=== PATIENT | male | born 1990 | race African-American/Black ===

== ENCOUNTER 2016-08-19 11:09 | Emergency (ER) | payer BC, OTHER ==
[~2016-08-19] VITALS: Ht 167.6 cm; Wt 102.6 kg
[~2016-08-19 11:09] MED LIST: MULT-506 PO; PRED20TA2 PO; TRAM-10 PO
[2016-08-19 11:23] VITALS: TEMP 37.1; Ht 167.6 cm; Wt 102.6 kg
[2016-08-19 12:07] LABS: COMPLETE YES; EOS % 1.1 %; HEMATOCRIT 40.6 % (42-52); IG% 0.3 %; LYMPH % 11.8 %; LYMPH ABS # 0.93 K/uL (1.2-3.4); MEAN CELL VOLUME 81.2 fL (80-100); MEAN CORPUSCULAR HEMOGLOBIN 28.6 pg (25-34); MEAN CORPUSCULAR HGB CONC 35.2 g/dl (32-36); MEAN PLATELET VOLUME 10.4 fL (7.4-10.4); MONO % 3.5 %; NEUT % 83.3 %; PLATELET COUNT 248 K/uL (130-400)
[2016-08-19 12:14] LABS: BUN/CREATININE RATIO 18.6 (10-20); CALCIUM 9.4 mg/dl (8.5-10.1); CREATININE 1.3 mg/dl (0.60-1.40)
[2016-08-19] MEDS ORDERED: ONDANSETRON 8 MG/54 ML D5W IV STA (13:23)
[2016-08-19] MEDS ORDERED: SODIUM CHLORIDE 0.9% 1000ML 2,000 ML IV STA (13:23)
--- NOTE | 2016-08-19 14:03 | DIAGNOSTIC IMAGING REPORT ---
CT SCAN OF THE ABDOMEN AND PELVIS WITHOUT CONTRAST CLINICAL HISTORY: Left-sided abdominal pain and vomiting COMPARISON STUDY: January 2009 TECHNIQUE: CT scan of the abdomen and pelvis was performed from the lung bases to the proximal femurs. Images are reviewed in the axial, sagittal, and coronal planes. IV contrast was not administered for this examination. CT DOSE: 1174.99 mGycm FINDINGS: Lower chest: The heart is normal in size and configuration, without pericardial effusion. The lung bases and pleural spaces are clear. Liver: There is hepatic steatosis. No focal masses are visualized. Gallbladder: Unremarkable. Spleen: Normal in size and attenuation. Pancreas: Unremarkable. Adrenal glands: Unremarkable. Kidneys: No renal, ureteral, or bladder calculi are visualized. Bowel: There are no transition zones indicate bowel obstruction. The appendix appears normal. There is no acute diverticulitis. Peritoneum: There is no intraperitoneal free air or abdominal ascites. Vasculature: The abdominal aorta is normal in course and caliber. Adenopathy: None. Pelvic viscera: The bladder, and pelvic viscera are unremarkable. Skeletal structures: No destructive osseous lesions are seen. IMPRESSION: 1. Hepatic steatosis 2. No renal, ureteral, or bladder calculi identified 3. No evidence of bowel obstruction. No evidence of free air 4. Normal appendix 5. No evidence of acute diverticulitis. Electronically signed by: Jose Gabriel M.D. 08/19/2016 2:02 PM Dictated Date/Time: 08/19/2016 1:59 PM
[2016-08-19 15:09] LABS: URINE APPEARANCE CLEAR (CLEAR); URINE BILIRUBIN NEG (NEG); URINE COLOR YELLOW; URINE NITRITE NEG (NEG); URINE PH 6.5 (4.5-7.5); UROBILINOGEN NEG (NEG); ZZUR CULT IF INDIC CLEAN CATCH NO
[2016-08-19 15:12] LABS: MANUAL MICROSCOPIC REQUIRED? NO; REVIEW REQ? NO
[2016-08-19 16:09] VITALS: BP 132/68; PULSE 88; O2SAT 97
[2016-08-19] MEDS ORDERED: PHENERGAN 25MG HOMEPACK PO ONE (16:15)
--- NOTE | 2016-08-19 21:16 | EMERGENCY ROOM VISIT NOTE ---
History Report prepared by Michael: Tesha Johnson Under the Supervision of: Dr. Raul Proctor M.D. First contact with patient: 13:07 Chief Complaint: ABDOMINAL PAIN Stated Complaint: SEVERE LT ABD. PAIN, VOMITING X 12 HRS, DIZZY History of Present Illness The patient is a 26 year old male who presents to the Emergency Room with complaints of intermittent left lower quadrant abdominal pain that started about 12 hours ago, around 0130 this morning. He rates his discomfort as a 1/10 in severity currently, but when the pain was at its worst he would rate his discomfort as an 8/10 in severity. The patient states that he woke up early this morning and vomited. The abdominal pain started after the vomiting. However , when he vomits it seems like the pain starts then he gets nauseous and then he experiences vomiting. He states that the vomiting was constant up until around 0730 this morning and he has been experiencing dry heaving ever since. The abdominal pain started out intermittent then became constant this morning and now it is intermittent again. He adds that the pain does feel like it is improving. The patient states that he experienced chills last night and this morning. He also states that he had a normal bowel movement last night before bed. Pt denies LOC, headache, fevers, diaphoresis, visual changes, neck pain, chest pain, breathing difficulties, back pain, melena, hematochezia, urinary symptoms, numbness, weakness, lymphadenopathy, rash, or other complaints. The patient also denies any history of kidney stones, problems urinating, or bladder issues. Source of History: patient Onset: 12 hours ago, around 0130 this morning Position: abdomen (LLQ) Symptom Intensity: 1/10 currently, 8/10 at its worst Timing: intermittent Associated Symptoms: + chills, + nausea, + vomiting Review of Systems See HPI for pertinent positives and negatives. A total of ten systems were reviewed and were otherwise negative. Past Medical & Surgical Medical Problems: (1) Alcohol Abuse-Unspec (2) Disloc Shoulder Nos-Clos (3) Dislocation of right shoulder joint (4) Lumbar herniated disc Family History Patient reports no known family medical history. Social History Smoking Status: Never Smoker Alcohol Use: occasionally Marital Status: in relationship Occupation Status: employed Allergies Coded Allergies: Penicillins (Verified Allergy, Unknown, ., 08/19/16) Physical Exam Vital Signs Date Time Temp Pulse Resp B/P Pulse Ox O2 Delivery O2 Flow Rate FiO2 08/19/16 16:09 88 20 132/68 97 Room Air 08/19/16 13:11 99 20 149/78 97 Room Air 08/19/16 11:23 37.1 108 18 135/86 96 Room Air Physical Exam GENERAL: Awake, alert, well-appearing, in no distress HENT: Normocephalic, atraumatic. Oropharynx unremarkable. EYES: Normal conjunctiva. Sclera non-icteric. NECK: Supple. No nuchal rigidity. FROM. No JVD. RESPIRATORY: Clear to auscultation. CARDIAC: Regular rate, normal rhythm. Extremities warm and well perfused. Pulses equal. ABDOMEN: Soft, non-distended. Left lower quadrant tenderness to palpation. No rebound or guarding. No masses. RECTAL: Deferred. MUSCULOSKELETAL: Chest examination reveals no tenderness. The back is symmetrical on inspection without obvious abnormality. There is no CVA tenderness to palpation. No joint edema. LOWER EXTREMITIES: Calves are equal size bilaterally and non-tender. No edema. No discoloration. NEURO: Normal sensorium. No sensory or motor deficits noted. SKIN: No rash or jaundice noted. Medical Decision & Procedures ER Provider Diagnostic Interpretation: CT results as stated below per my review and radiologist interpretation CT SCAN OF THE ABDOMEN AND PELVIS WITHOUT CONTRAST IMPRESSION: 1. Hepatic steatosis 2. No renal, ureteral, or bladder calculi identified 3. No evidence of bowel obstruction. No evidence of free air 4. Normal appendix 5. No evidence of acute diverticulitis. Electronically signed by: Jose Gabriel M.D. 08/19/2016 2:02 PM Dictated Date/Time: 08/19/2016 1:59 PM Laboratory Results 08/19/16 11:40 Red Blood Count 5.00, Mean Corpuscular Volume 81.2, Mean Corpuscular Hemoglobin 28.6, Mean Corpuscular Hemoglobin Concent 35.2, Mean Platelet Volume 10.4, Neutrophils (%) (Auto) 83.3, Lymphocytes (%) (Auto) 11.8, Monocytes (%) (Auto) 3.5, Eosinophils (%) (Auto) 1.1, Basophils (%) (Auto) 0.0, Neutrophils # (Auto) 6.58, Lymphocytes # (Auto) 0.93, Monocytes # (Auto) 0.28, Eosinophils # (Auto) 0.09, Basophils # (Auto) 0.00 08/19/16 11:40 Test 08/19/16 11:40 08/19/16 14:25 White Blood Count 7.90 K/uL (4.8-10.8) Red Blood Count 5.00 M/uL (4.7-6.1) Hemoglobin 14.3 g/dL (14.0-18.0) Hematocrit 40.6 % (42-52) Mean Corpuscular Volume 81.2 fL (80-100) Mean Corpuscular Hemoglobin 28.6 pg (25-34) Mean Corpuscular Hemoglobin Concent 35.2 g/dl (32-36) Platelet Count 248 K/uL (130-400) Mean Platelet Volume 10.4 fL (7.4-10.4) Neutrophils (%) (Auto) 83.3 % Lymphocytes (%) (Auto) 11.8 % Monocytes (%) (Auto) 3.5 % Eosinophils (%) (Auto) 1.1 % Basophils (%) (Auto) 0.0 % Neutrophils # (Auto) 6.58 K/uL (1.4-6.5) Lymphocytes # (Auto) 0.93 K/uL (1.2-3.4) Monocytes # (Auto) 0.28 K/uL (0.11-0.59) Eosinophils # (Auto) 0.09 K/uL (0-0.5) Basophils # (Auto) 0.00 K/uL (0-0.2) RDW Standard Deviation 40.9 fL (36.4-46.3) RDW Coefficient of Variation 13.7 % (11.5-14.5) Immature Granulocyte % (Auto) 0.3 % Immature Granulocyte # (Auto) 0.02 K/uL (0.00-0.02) Anion Gap 11.0 mmol/L (3-11) Est Creatinine Clear Calc Drug Dose 94.9 ml/min Estimated GFR () 86.1 Estimated GFR (Non- 74.3 BUN/Creatinine Ratio 18.6 (10-20) Calcium Level 9.4 mg/dl (8.5-10.1) Total Bilirubin 0.7 mg/dl (0.2-1) Aspartate Amino Transf (AST/SGOT) 31 U/L (15-37) Alanine Aminotransferase (ALT/SGPT) 52 U/L (12-78) Alkaline Phosphatase 72 U/L (45-117) Total Protein 8.7 gm/dl (6.4-8.2) Albumin 4.4 gm/dl (3.4-5.0) Globulin 4.3 gm/dl (2.5-4.0) Albumin/Globulin Ratio 1.0 (0.9-2) Lipase 93 U/L (73-393) Urine Color YELLOW Urine Appearance CLEAR (CLEAR) Urine pH 6.5 (4.5-7.5) Urine Specific [place] 1.030 (1.000-1.030) Urine Protein TRACE (NEG) Urine Glucose (UA) NEG (NEG) Urine Ketones NEG (NEG) Urine Occult Blood NEG (NEG) Urine Nitrite NEG (NEG) Urine Bilirubin NEG (NEG) Urine Urobilinogen NEG (NEG) Urine Leukocyte Esterase NEG (NEG) Urine WBC (Auto) 0 /hpf (0-5) Urine RBC (Auto) 0-4 /hpf (0-4) Urine Hyaline Casts (Auto) 0 /lpf (0-5) Urine Epithelial Cells (Auto) 5-10 /lpf (0-5) Urine Bacteria (Auto) NEG (NEG) Laboratory results reviewed by me Medications Administered Medications (Trade) Dose Ordered Sig/Alondra Route Start Time Stop Time Status Last Admin Dose Admin Sodium Chloride (Nss 1000ml) 2,000 ml @ 999 mls/hr Q2H1M STAT IV 08/19/16 13:23 08/19/16 15:23 DC 08/19/16 13:30 999 MLS/HR Ondansetron HCl (Zofran 8mg Iv) 8 mg NOW STAT IV 08/19/16 13:23 08/19/16 13:25 DC 08/19/16 13:30 8 MG Promethazine HCl (Phenergan 25MG Home Pack) 1 homepack UD ONCE PO 08/19/16 16:15 08/19/16 16:16 DC 08/19/16 16:27 1 HOMEPACK ED Course 1322: The patient was evaluated in room B3. A complete history and physical exam was performed. 1323: Ordered Ondansetron HCl 8 mg IV, Sodium Chloride 2000 ml @ 999 mls/hr IV 1416: I reassessed the patient. He is doing better and his nausea has been relieved. 1610: I reevaluated the patient. Discussed results and discharge instructions: he verbalized understanding and agreement. The patient is ready for discharge. 1615: Ordered Promethazine HCl 1 [facility] Medical Decision Triage Nursing notes reviewed and agree them. Additional history obtained from the family. The patient's history was concerning for nausea, vomiting, diarrhea, and abdominal pain. Differential diagnosis: Etiologies such as gastroenteritis, food borne illness, infections, appendicitis , diverticulitis, inflammatory bowel disease, GI bleed, biliary pathology, as well as others were entertained. Physical examination findings: As above. Mild left sided tenderness. ER treatment provided: IV hydration 2 L NSS. IV Zofran On reassessment the patient felt better. Patient was tolerating p.o. intake. Diagnostics interpretation by me: The labs revealed an unremarkable cc, chemistry panel, LFTs, lipase, and urinalysis. Imaging studies: CT as above. On reassessment patient was doing much better. His laboratory testing and imaging were unremarkable. There is no evidence of diverticulitis, colitis, or renal stones. I suspect a viral syndrome although the patient hasn't had diarrhea. It is possible that this may develop. If she worsens in any way or symptoms return he will come back to the emergency department for reevaluation. I did advise close outpatient follow-up.I gave my usual and customary discussion regarding this issue. By the evaluation outlined above emergent etiologies such as appendicitis, diverticulitis, mesenteric ischemia, aortic pathology, inflammatory bowel disease, renal colic, PUD, biliary pathology, UTI, as well as others were deemed relatively unlikely. The patient was informed about the findings as listed above. All questions were answered and he was pleased with the treatment. Return instructions were outlined and the patient was discharged in stable condition. Outpatient prescription management: Phenergan home pack Referral: The patient was referred to his primary care physician for follow-up in 2 to 3 days for a recheck of the current condition. The chart was completed utilizing [employer] voice recognition software. Grammatical errors, random word insertions, pronoun errors, and incomplete sentences are an occasional consequence of this system due to software limitations, ambient noise, and hardware issues. Any formal questions or concerns about the content, text, or information contained within the body of this dictation should be directly addressed to the physician for clarification. Impression Primary Impression: Vomiting Additional Impression: Left sided abdominal pain Scribe Attestation The scribe's documentation has been prepared under my direction and personally reviewed by me in its entirety. I confirm that the note above accurately reflects all work, treatment, procedures, and medical decision making performed by me. Departure Information Dispostion Home / Self-Care Referrals Richard Loyola MD (PCP) Forms HOME CARE DOCUMENTATION FORM, IMPORTANT VISIT INFORMATION Patient Instructions My [facility] Additional Instructions VOMITING INSTRUCTIONS: Phenergan(promethazine) tablets 25mg: Take one every six hours as needed for nausea. Avoid alcohol, operating machinery or dangerous equipment, working on ladders or roofs, DRIVING, or situations where being under the influence may be dangerous. Ibuprofen(Motrin, Advil) may be used for fever or pain. Use 600mg every six hours as needed. Take with food. Avoid using more than 2400mg in a 24 hour period. Do not use 2400mg per day for more than three consecutive days without physician direction. Prolonged inappropriate use can lead to stomach upset or ulcers. (AND/OR) Acetaminophen(Tylenol) may be used for fever or pain. Use 1000mg every six hours as needed. Avoid using more than 4000mg in a 24 hour period. Rest and drink plenty of fluids as tolerated. Slow sips of water or sports drinks are recommended instead of large amounts all at once. Continue current medications. Once your stomach is settled start with a clear liquid diet (jello, soup broth, etc.) and then advance as tolerated. You should avoid full, heavy meals for about 24 hrs from the time your symptoms resolved. Return to the ER for persistent vomiting, fevers, abdominal pain, chest pains, difficulty breathing, black or bloody stools, worsening of your condition, or as needed. Follow up with your primary physician in 2-3 days for a recheck of your current condition Problem Qualifiers Primary Impression: Vomiting Vomiting type: unspecified Vomiting Intractability: unspecified Nausea presence: with nausea Qualified Codes: R11.2 - Nausea with vomiting, unspecified
== END 2016-08-19 16:27 | disposition home or self-care (01) ==
LOC: C.EDB 11:10
DX: R11.10 Vomiting, unspecified (principal); R10.9 Unspecified abdominal pain; Z87.828 Personal history of other (healed) physical injury and trauma; Z88.0 Allergy status to penicillin